=== PATIENT | male | born 2000 | race Hispanic/Latino ===

== ENCOUNTER 2024-01-25 09:23 | Emergency (ER) | payer OTHER, SELFPAY ==
[2024-01-25 09:47] VITALS: BP 158/84
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
[2024-01-25] MEDS: AUGMENTIN 875 MG/125 MG 1 TABLET PO (11:36)
[2024-01-25] MEDS: ADACEL 0.5 ML IM (11:36)
[2024-01-25] MEDS: MOTRIN 600 MG PO (11:50)
== END 2024-01-25 13:35 | disposition home or self-care (01) ==
LOC: EMR 09:23
PROVIDERS: EMERGENCY PHYSICIAN Emergency Medicine
DX: S61.233A Puncture wound without foreign body of left middle finger without damage to nail, initial encounter (principal); S61.235A Puncture wound without foreign body of left ring finger without damage to nail, initial encounter; Y04.1XXA Assault by human bite, initial encounter; Y99.0 Civilian activity done for income or pay; Z23 Encounter for immunization
CPT/HCPCS: 90471; 99283; 73130; 90715